=== PATIENT | female | born 1965 | race Caucasian/White ===

== ENCOUNTER 2017-06-20 12:09 | Emergency (ER) | payer MEDICAID ==
[~2017-06-20] VITALS: Ht 149.9 cm; Wt 60.0 kg
[2017-06-20 18:19] VITALS: BP 129/75
== END 2017-06-20 20:18 | disposition left against medical advice (07) ==
LOC: ER 12:27
DX: F41.9 Anxiety disorder, unspecified (principal); I10 Essential (primary) hypertension; E11.9 Type 2 diabetes mellitus without complications; Z53.21 Procedure and treatment not carried out due to patient leaving prior to being seen by health care provider
CPT/HCPCS: 82962; 93005; 99283